=== PATIENT | male | born 1985 | race Caucasian/White ===

== ENCOUNTER 2016-08-02 15:08 | Emergency (ER) | payer OTHER ==
[~2016-08-02] VITALS: Wt 81.6 kg
[2016-08-02] MEDS ORDERED: HYDROCODONE BIT1 T11 PO (15:58)
[2016-08-02] MEDS ORDERED: ROBAXIN500 M1 PO (15:58)
[2016-08-02] MEDS ORDERED: ANAPROX DS550 MG PO (15:58)
[2016-08-02] MEDS ORDERED: AMOXICILLIN500 M3 PO (15:59)
== END 2016-08-02 16:13 | disposition home or self-care (01) ==
LOC: ED 15:08
DX: S39.012A Strain of muscle, fascia and tendon of lower back, initial encounter (principal); K08.89 Other specified disorders of teeth and supporting structures; F17.200 Nicotine dependence, unspecified, uncomplicated; X58.XXXA Exposure to other specified factors, initial encounter; Y93.89 Activity, other specified; Y92.9 Unspecified place or not applicable; Y99.9 Unspecified external cause status